=== PATIENT | female | born 1995 | race Caucasian/White ===

== ENCOUNTER 2018-01-04 21:44 | Emergency (ER) | payer SELFPAY ==
[2018-01-04 22:18] VITALS: BP 118/69
--- NOTE | 2018-01-04 23:11 | ER Document Report ---
ED Medical Screen (RME) - General Chief Complaint: Abdominal Cramping Stated Complaint: CRAMPING,SPOTTING Time Seen by Provider: 01/04/18 22:33 Notes: Patient presents for concern of abdominal pelvic cramping and spotting that started today. Patient states that her last menstrual period was approximately beginning of November. 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 Patient denies any dysuria cough congestion fevers. I discussed with patient the need to rule out ectopic at which time patient became upset stating "is anything going to be done". I explained that the fetus is not viable less than 4 weeks old but testing to confirm as well as consideration of ectopic rule out should be performed. At this point patient walked out of the triage room and went into the waiting room crying. I have greeted and performed a rapid initial assessment of this patient. A comprehensive ED assessment and evaluation of the patient, analysis of test results and completion of the medical decision making process will be conducted by additional ED providers. PHYSICAL EXAMINATION: GENERAL: Well-appearing, well-nourished, tearful. HEAD: Atraumatic, normocephalic. EYES: Pupils equal round extraocular movements intact, conjunctiva are normal. ENT: Nares patent NECK: Normal range of motion LUNGS: No respiratory distress Musculoskeletal: Normal range of motion NEUROLOGICAL: Normal speech, normal gait. PSYCH: Normal mood, normal affect. TRAVEL OUTSIDE OF THE [place] IN LAST 30 DAYS: No Physical Exam - Vital signs Vitals: Temp Pulse Resp BP Pulse Ox 97.8 F 86 18 118/69 98 01/04/18 22:16 01/04/18 22:16 01/04/18 22:16 01/04/18 22:16 01/04/18 22:16 Course - Vital Signs Vital signs: Temp Pulse Resp BP Pulse Ox 97.8 F 86 18 118/69 98 01/04/18 22:16 01/04/18 22:16 01/04/18 22:16 01/04/18 22:16 01/04/18 22:16
== END 2018-01-04 22:35 | disposition left against medical advice (07) ==
LOC: ER 21:44
DX: R10.2 Pelvic and perineal pain (principal); Z87.59 Personal history of other complications of pregnancy, childbirth and the puerperium; Z53.20 Procedure and treatment not carried out because of patient's decision for unspecified reasons
CPT/HCPCS: 99281